=== PATIENT | male | born 1935 | race Caucasian/White ===

== ENCOUNTER 2016-06-10 07:36 | Day surgery (SDC) | payer OTHER ==
[~2016-06-10] VITALS: Ht 175.3 cm; Wt 84.5 kg
[~2016-06-10 07:36] MED LIST: BENADRYL25 MG PO; CENTRUM SILVER1 EAC3 PO; LITE COAT ASPI325 M1 PO; LOCOID45 GM TP; LODOSYN25 MG PO; LOPROX120 ML TP; MIRALAX17 GM PO; OXISTAT60 GM TP; THERA TEARS NU1 EACH PO; TOPROL XL50 MG PO; VANOS60 GM TP; ZESTRIL10 MG PO; ZOCOR20 MG PO
[2016-06-10 08:47] VITALS: BP 136/80
[2016-06-10 08:50] VITALS: BP 136/80
[2016-06-10 13:05] VITALS: BP 163/70
[2016-06-10 13:33] VITALS: BP 150/65
== END 2016-06-10 13:45 | disposition home or self-care (01) ==
LOC: SDC 07:36
PROC: 08B43ZZ Excision of Right Vitreous, Percutaneous Approach (ICD-10-PCS; principal; 2016-06-10)
PROC: 08CE3ZZ Extirpation of Matter from Right Retina, Percutaneous Approach (ICD-10-PCS; principal; 2016-06-10)
DX: H35.371 Puckering of macula, right eye (principal); H35.81 Retinal edema; I10 Essential (primary) hypertension; G20 Parkinson's disease; Z79.899 Other long term (current) drug therapy; Z79.82 Long term (current) use of aspirin
CPT/HCPCS: J0690; J0713; J3300